=== PATIENT | male | born 2000 | race Caucasian/White ===

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

== ENCOUNTER 2020-11-16 01:23 | Emergency (ER) | payer SELFPAY ==
[2020-11-16] MEDS ORDERED: diphenhydrAMINE 50 MG/ML SDV IM ONE (01:40)
[2020-11-16] MEDS ORDERED: methylPREDNISolone Sodium Succinate 125 MG/2 ML SDV IM ONE (01:40)
--- NOTE | 2020-11-16 01:44 | EDM.PDOC ---
ED HPI GENERAL MEDICAL PROBLEM - General Chief Complaint: Skin Complaint Stated Complaint: RASH OVER 1/2 OF HIS BODY Time Seen by Provider: 11/16/20 01:25 Source of Information: Reports: Patient History Limitations: Reports: No Limitations - History of Present Illness INITIAL COMMENTS - FREE TEXT/NARRATIVE: 20-year-old male no past medical history presents for body rash that started today and seems to be worsening. Patient notes that he recently got a tattoo on his left chest. He notes that when he was driving home from [place] today he began to get itchy on his head and his chest. He noted development of a diffuse red rash. Denies any nausea, vomiting, shortness of breath, scratchy throat, airway swelling. - Related Data Allergies Allergy/AdvReac Type Severity Reaction Status Date / Time No Known Allergies Allergy Verified 11/16/20 01:29 Home Meds: Home Meds Amoxicillin/Potassium Clav [Augmentin 875-125 Tablet] 1 each PO BID #14 tablet 10/22/19 [Rx] predniSONE 40 mg PO DAILY 5 Days #10 tab 11/16/20 [Rx] Past Medical History - Past Health History Medical/Surgical History: Denies Medical/Surgical History HEENT History: Reports: None Cardiovascular History: Reports: None Respiratory History: Reports: None Gastrointestinal History: Reports: None Genitourinary History: Reports: None Musculoskeletal History: Reports: None Neurological History: Reports: None Psychiatric History: Reports: None Endocrine/Metabolic History: Reports: None Hematologic History: Reports: None Immunologic History: Reports: None Oncologic (Cancer) History: Reports: None Dermatologic History: Reports: None - Infectious Disease History Infectious Disease History: Reports: Chicken Pox - Past Surgical History Head Surgeries/Procedures: Reports: None Male Surgical History: Reports: None Social & Family History - Family History Family Medical History: No Pertinent Family History - Tobacco Use Tobacco Use Status *Q: Never Tobacco User - Caffeine Use Caffeine Use: Reports: None - Recreational Drug Use Recreational Drug Use: No ED ROS GENERAL - Review of Systems Review Of Systems: Comprehensive ROS is negative, except as noted in HPI. ED EXAM, SKIN/RASH Exam: See Below Exam Limited By: No Limitations General Appearance: Alert, WD/WN, No Apparent Distress Ears: Hearing Grossly Normal Nose: Normal Inspection Throat/Mouth: Normal Voice, No Airway Compromise Head: Atraumatic, Normocephalic Neck: Normal Inspection, Supple Respiratory/Chest: No Respiratory Distress, No Accessory Muscle Use Cardiovascular: Normal Peripheral Pulses Extremities: Normal Inspection Neurological: Alert Psychiatric: Normal Affect, Normal Mood Skin: Warm, Dry, Intact, Other (Diffuse urticarial rash predominantly on right- sided body, tattoo on left-sided chest is normal in appearance without evidence of infection) Course - Vital Signs Last Recorded V/S: Last Vital Signs Temp 97.5 F 11/16/20 01:29 Pulse 84 11/16/20 01:29 Resp 18 11/16/20 01:29 BP 118/77 11/16/20 01:29 Pulse Ox 98 11/16/20 01:29 - Orders/Labs/Meds Meds: Medications Discontinued Medications Generic Name Dose Route Start Last Admin Trade Name Tonya PRN Reason Stop Dose Admin Diphenhydramine HCl 50 mg 11/16/20 01:40 Diphenhydramine 50 Mg/Ml Sdv IM 11/16/20 01:41 ONETIME ONE Methylprednisolone Sodium Succinate 125 mg 11/16/20 01:40 Methylprednisolone Sodium Succinate 125 Mg/2 Ml Sdv IM 11/16/20 01:41 ONETIME ONE - Re-Assessments/Exams Free Text/Narrative Re-Assessment/Exam: 11/16/20 01:42 Presentations consistent with urticaria. Will treat with methylprednisolone and Benadryl. Will discharge with 5-day course of prednisone. Will give referral to dermatology. Departure - Departure Time of Disposition: 01:41 Disposition: Home, Self-Care 01 Condition: Good Clinical Impression: Urticaria - Discharge Information Prescriptions: predniSONE 40 mg PO DAILY 5 Days #10 tab Instructions: Hives Referrals: PCP,Not In Area [Primary Care Provider] - Additional Instructions: Your presentation is consistent with urticaria or hives. This is usually an allergic reaction. It typically responds well to steroids. You were given a shot of steroids and Benadryl in the emergency department. I sent steroids to your pharmacy as well that you can take for the next 5 days. You also take Benadryl as needed to help with itching and can also help with the rash. If you develop difficulty breathing or vomiting and cannot keep anything down then you should come back to the ER for reassessment. If the rash does not go away after the steroids you are always welcome to come back to the ER but would probably be better off following up with dermatology. We do actually the char dust cleaner and salvager here at the hospital and he is usually pretty easy to get him with with short notice. His information is provided below. Dr. Jaskaran Donahue [facility] [address] [place] [address], [address] [place] [address] The following information is given to patients seen in the emergency department who are being discharged to home. This information is to outline your options for follow-up care. We provide all patients seen in our emergency department with a follow-up referral. The need for follow-up, as well as the timing and circumstances, are variable depending upon the specifics of your emergency department visit. If you don't have a primary care physician on staff, we will provide you with a referral. We always advise you to contact your personal physician following an emergency department visit to inform them of the circumstance of the visit and for follow-up with them and/or the need for any referrals to a consulting specialist. The emergency department will also refer you to a specialist when appropriate. This referral assures that you have the opportunity for follow-up care with a specialist. All of these measure are taken in an effort to provide you with optimal care, which includes your follow-up. Under all circumstances we always encourage you to contact your private physician who remains a resource for coordinating your care. When calling for follow-up care, please make the office aware that this follow-up is from your recent emergency room visit. If for any reason you are refused follow-up, please contact the [facility] Emergency Department at and asked to speak to the emergency department charge nurse. Please follow up with your primary care physician. If you do not have a primary care physician, see below: [facility] [address] [place] [phone] [facility] [address] [place] [id number] [facility] [address] [place] [id number] Sepsis Event Note (ED) - Evaluation Sepsis Screening Result: No Definite Risk - Focused Exam Vital Signs: Vital Signs Temp Pulse Resp BP Pulse Ox 11/16/20 01:29 97.5 F 84 18 118/77 98
== END 2020-11-16 02:04 | disposition home or self-care (01) ==
LOC: MW.ED 01:23
DX: L50.9 Urticaria, unspecified (principal)
CPT/HCPCS: 96372; 99282; J1200; J2930; 99283